=== PATIENT | female | born 1970 | race Caucasian/White ===

== ENCOUNTER → 2017-02-01 | Outpatient (CLI) | payer BC ==
[~2017-02-01] MED LIST: MULTI VITAMIN1 EACH PO; NECON PO; NEXIUM PO; PREVACID15 M1 PO; ZYRTEC10 M2 PO
--- NOTE | ~2017-02-01 | MY11 ---
[facility] A Service of [facility] RADIOLOGY TEXT RESULTS PATIENT: MAXWELL MAYA V LOCATION: [facility] : 66 UNIT #: [id number] AGE: [address]: Orestes King MD SEX: F ORDER DR: [id number] [facility]. [place], [place] [address] [id number] O MR#: [id number] Acc #: [id number] NAME: MAXWELL MAYA : 1970 SEX: F STUDY DATE/TIME: 02/01/2017 8:47 UNIT: [facility] ROOM: STUDY DESCRIPTION: MY Mammogram Screening [place] Attending Physician: Orestes King M.D. Referring Physician: Orestes King M.D. Ordering Physician: Orestes King M.D. Primary Care Physician: Kylee Tijerina Aprn MEDICAL IMAGING REPORT This report is preliminary unless electronic signature is present EXAM Digital screening mammogram 02/01/2017 HISTORY 46-year-old woman. Positive family history, mother age 56. Annual screen. COMPARISON Mammograms date to 09/14/2006 with most recent 01/31/2016. FINDINGS Digital imaging of each breast was completed utilizing screening protocol. Review includes FDA-approved CAD device. Breast parenchyma remains extremely dense with a combination of fibroglandular opacities and generalized fibronodularity. Subareolar duct prominence is noted in each breast. I see no suspicious mass characteristics and no microcalcifications. Given the extreme parenchymal density in this patient, consider adding digital breast tomosynthesis to the patient's annual screening protocol. This could be performed at [facility]. IMPRESSION Stable benign mammogram. See full report for recommendations regarding tomosynthesis. Annual screening recommended. Patient's over the age of 40 are entered into a reminder system with target due date for the next mammogram. BIRADS: 2 Benign findings Dictated by... [facility] A Service of [facility] & [facility] RADIOLOGY TEXT RESULTS PATIENT: MAXWELL MAYA V LOCATION: [facility] : 66 UNIT #: [id number] AGE: [address]: Orestes King MD SEX: F ORDER DR: Bereket Spivey M.D. THIS IS AN ELECTRONICALLY VERIFIED REPORT Bereket Spivey M.D. at 02/01/2017 11:42 AM MASHA/bharat TD: 02/01/2017 10:06 JOB #: [id number] MEDICAL IMAGING REPORT Page 1 of 1 COPY
== END | disposition home or self-care (01) ==
LOC: CWCC 08:36
DX: Z12.31 Encounter for screening mammogram for malignant neoplasm of breast (principal); Z80.3 Family history of malignant neoplasm of breast
CPT/HCPCS: G0202